=== PATIENT | female | born 1945 | race Caucasian/White ===

== ENCOUNTER → 2016-06-05 | Outpatient (CLI) | payer MEDICARE | END | disposition home or self-care (01) | LOC: BFHH 13:53 | PROVIDERS: ATTEND Internal Medicine Hematology & Oncology | DX: I48.91 Unspecified atrial fibrillation (principal); I10 Essential (primary) hypertension ==

== ENCOUNTER → 2016-06-13 | Outpatient (CLI) | payer MEDICARE | END | disposition home or self-care (01) | LOC: BFHH 09:45 | PROVIDERS: ATTEND Internal Medicine Hematology & Oncology | DX: I11.0 Hypertensive heart disease with heart failure (principal); I48.91 Unspecified atrial fibrillation ==

== ENCOUNTER → 2016-06-20 | Outpatient (CLI) | payer MEDICARE | END | disposition home or self-care (01) | LOC: BFHH 09:40 | PROVIDERS: ATTEND Internal Medicine Interventional Cardiology | DX: I48.91 Unspecified atrial fibrillation (principal); C50.912 Malignant neoplasm of unspecified site of left female breast; I10 Essential (primary) hypertension ==

== ENCOUNTER → 2016-07-11 | Outpatient (CLI) | payer MEDICARE | END | disposition home or self-care (01) | LOC: BFHH 10:41 | PROVIDERS: ATTEND Internal Medicine Interventional Cardiology | DX: C50.912 Malignant neoplasm of unspecified site of left female breast (principal); I48.91 Unspecified atrial fibrillation ==

== ENCOUNTER → 2016-08-29 | Outpatient (CLI) | payer MEDICARE | END | disposition home or self-care (01) | LOC: BFHH 10:16 | PROVIDERS: ATTEND Internal Medicine Interventional Cardiology | DX: I48.91 Unspecified atrial fibrillation (principal) ==

== ENCOUNTER → 2016-09-05 | Outpatient (CLI) | payer MEDICARE, OTHER | LOC: GMAM 15:07 | PROVIDERS: ATTEND Family Medicine | DX: E53.8 Deficiency of other specified B group vitamins (principal); M62.81 Muscle weakness (generalized); D64.9 Anemia, unspecified ==

== ENCOUNTER → 2016-10-17 | Outpatient (CLI) | payer MEDICARE, OTHER | END | disposition home or self-care (01) | LOC: BFHH 08:54 | PROVIDERS: ATTEND Family Medicine | DX: I48.91 Unspecified atrial fibrillation (principal) ==

== ENCOUNTER → 2016-12-21 | Outpatient (CLI) | payer MEDICARE, OTHER | END | disposition home or self-care (01) | LOC: BFHH 09:35 | PROVIDERS: ATTEND Family Medicine | DX: C50.912 Malignant neoplasm of unspecified site of left female breast (principal); D51.9 Vitamin B12 deficiency anemia, unspecified; I97.2 Postmastectomy lymphedema syndrome; D64.9 Anemia, unspecified; I11.0 Hypertensive heart disease with heart failure ==

== ENCOUNTER 2017-02-13 10:17 | Inpatient (IN) | payer MEDICARE, OTHER ==
--- NOTE | 2017-02-13 13:38 | HP ---
SUPERVISING PHYSICIAN: Zachary Perez MD CHIEF COMPLAINT: Hypokalemia and dehydration. HISTORY OF PRESENT ILLNESS: Ms. Conte is a 71-year-old, female patient with a malignant neoplasm in the left breast with metastatic disease process to the lungs, liver and bones. Her oncologist is Dr. Christopher. She has been having issues with hypokalemia. She has been having persistent low potassium levels and has been started on outpatient treatment plan with p.o. potassium multiple times, but continues to have persistent hypokalemia. Dr. Christopher requested that Dr. Perez manage her potassium levels in the outpatient setting. However, given that she is having persistent hypokalemia and is significantly weakened and feeling bad, she presented to the clinic today to recheck her level and her potassium again was low at 2.4 with magnesium 1.5. She also has elevated renal function with creatinine 2.65. The patient does have terminal illness and has hospice has been discussed multiple times, but she wishes to not do hospice at this time. Dr. Perez called me to have the patient admitted having failed outpatient treatment plan for persistent severe hypokalemia. The patient is now to be admitted to the hospital for initiation of IV potassium and further monitoring and treatment. PAST MEDICAL HISTORY: 1. Atrial fibrillation with controlled ventricular rate on Xarelto. 2. Malignant neoplasm of the left breast metastasized to lungs, liver and bones. 3. Post mastectomy lymphedema of the left arm, chronic. PAST SURGICAL HISTORY: 1. Left knee surgery. 2. Left mastectomy. 3. Thoracentesis. HOME MEDICATIONS: 1. Albuterol inhalers t.i.d. p.r.n. as needed. 2. Calcium 600 mg daily. 3. Ascorbic acid 1000 mg daily. 4. Vitamin B12 1000 mcg monthly. 5. Vitamin D3 2000 units daily. 6. Lasix 40 mg daily. 7. Feosol tablets 325 mg b.i.d. 8. Nexium 20 mg daily. 9. [place] 5/325 1 tablet q.6h. as needed for pain. 10. Mucinex 600 mg q.12h. as needed. 11. Atrovent 17 mcg t.i.d. as needed. 12. Ibuprofen 200 mg q.6h. as needed. 13. Imodium 2 mg daily. 14. Prilosec 20 mg daily. 15. Metoprolol tartrate 12.5 mg twice daily. 16. Xarelto 20 mg daily. 17. Potassium chloride 10 mEq daily. 18. Zofran 4 mg t.i.d. 19. Tramadol 50 mg q.4h. as needed. 20. Zantac 150 mg 3 times a day. 21. Lexapro 10 mg daily. ALLERGIES: NO KNOWN DRUG ALLERGIES. FAMILY HISTORY: Father of unknown reasons. Mother with breast cancer. She also has an aunt who has breast cancer. SOCIAL HISTORY: The patient lives in [place]. She is disabled. She is . She has five children. She is a nonsmoker. She does not drink alcohol or use illicit drugs. She lives along with no family assistance. REVIEW OF SYSTEMS: CONSTITUTIONAL: Denies any chills or changes in appetite. She does note she has generalized fatigue, but denies fever or headaches. HEENT: Denies blurred vision, decreased hearing, sore throat, swollen glands. RESPIRATORY: She does have some shortness of breath at rest as well as exertion. She denies any wheezing, cough. CARDIOVASCULAR: Denies chest pain. She does have a history of atrial fibrillation, but no syncopal episodes. GASTROINTESTINAL: Denies nausea or vomiting, abdominal pain, diarrhea, constipation or other bowel habit changes. GENITOURINARY: Denies dysuria, hematuria, or other urinary symptoms. INTEGUMENTARY: Denies rashes or lesions. NEUROLOGIC: Denies dizziness, syncopal episodes, vision changes. PHYSICAL EXAMINATION: VITAL SIGNS: Temperature 98.3. Pulse 104. Blood pressure 86/56. Respirations 20. Saturation 94% on room air. Heart rate was slightly irregular with controlled rate with monitor showing atrial fibrillation. Admission weight 42.5 kg. GENERAL: The patient appears to be in no acute distress. She is alert. HEENT: Tympanic membranes clear bilaterally. Oropharynx is pink. Mildly dry mucous membranes. No lesions. NECK: Supple with full range of motion. No jugular venous distention noted. No cervical lymphadenopathy noted. CHEST: Lungs clear to auscultation bilaterally without any rhonchi, wheezes, or rales. CARDIOVASCULAR: Slightly irregular rate and rhythm without any appreciable murmurs, gallops, or rubs. ABDOMEN: Soft, nontender. Positive bowel sounds. EXTREMITIES: There is no cyanosis, clubbing or edema except for chronic lymphedema noted to the left arm with pressure sleeve in place. NEUROLOGIC: The patient is alert and oriented times three with no focal neuromotor deficits. Cranial nerves II-XII are grossly intact. LABORATORY: CBC showed white count 10,200, hemoglobin 9, hematocrit 27.1. RBC indices showed microcytic/hypochromic presentation with platelet count 450,000. Differential showed just a slight left shift. Chemistries showed moderate hyponatremia with sodium 127, potassium 2.4, anion elevated at 18.4, BUN 21, creatinine 2.65, glucose 101, calcium 9.5, magnesium 1.5. Liver functions within normal limits. Urinalysis pending. RADIOLOGY: No studies were obtained. ASSESSMENT: 1. Metabolic acidosis noted with elevated anion gap, likely secondary to underlying dehydration and electrolyte imbalance with the patient being on Lasix. 2. Electrolyte imbalance with hypokalemia, hyponatremia and hypomagnesemia, likely secondary to ongoing Lasix therapy and some underlying dehydration, possibly secondary to some degree of syndrome of inappropriate antidiuretic hormone secretion (SIADH) with her showing a low osmolality of 258 along with sodium of 127. 3. Renal insufficiency likely due to prerenal azotemia with some underlying dehydration. 4. History of malignant neoplasm of the left breast with metastasis to the lungs, liver and bone. 5. Generalized weakness secondary to ongoing comorbidities, underlying malignancy, dehydration and electrolyte imbalance. 6. Anemia with microcytic/hypochromic presentation secondary to chronic illness with some iron deficiency anemia with the patient on iron therapy. 7. Chronic atrial fibrillation with controlled ventricular rate on a long-term anticoagulation therapy with Xarelto. PLAN: The patient will be admitted to the hospital for initiation of both oral and IV potassium. We will also provide some IV fluids to assist in rehydration and hopefully correction of the sodium with some normal saline with 40 of potassium that will run at 110 an hour. We will reassess in the morning with BMP. She will also get potassium 40 mEq p.o. once and again as needed once able to recheck electrolytes. We will resume home medications once they have been updated and verified. We will plan to continue DVT prophylaxis with Xarelto. We will anticipate length of stay to be last two to three days with close monitoring of her magnesium and potassium for correction. Until then, we will continue to monitor the patient closely and treat appropriately. Once clinically improved, she certainly will be discharged to have close clinical followup with Dr. Perez, her primary care provider. I did discuss initially when she came in possibility of hospice. The patient is adamantly against hospice at this point. She does live alone, but feels like she is not in need of hospice care. #[id number] [facility]
[2017-02-13] MEDS ORDERED: ACETAMINOPHEN 325 MG TAB PO PRN (14:28)
[2017-02-13] MEDS ORDERED: SODIUM CHLORIDE 0.9% (FLUSH) 10 ML SYG IV PRN (14:28)
[2017-02-13] MEDS ORDERED: IV SET AND CAP CHANGE INJ INJ SCH (14:30)
[2017-02-13] MEDS ORDERED: MAGNESIUM SULFATE PREMIX 2GM 2 GM in PREMIX BAG 1 BAG IVPB ONE (14:32)
[2017-02-13] MEDS ORDERED: MAGNESIUM SULFATE PREMIX 2GM 50 ML IVPB ONE (15:06)
[2017-02-13] MEDS: KCL 40MEQ/NS 1,000 ML IVS PRN (15:08)
[2017-02-13] MEDS ORDERED: IBUPROFEN 200 MG TAB PO PRN (17:14)
[2017-02-13] MEDS ORDERED: HYDROcodone 5MG/APAP 325MG 1 EA TAB PO PRN (17:14)
[2017-02-13] MEDS ORDERED: traMADol HCL 50 MG TAB PO PRN (17:14)
[2017-02-13] MEDS ORDERED: POTASSIUM CHLORIDE 20 MEQ TAB PO ONE (17:18)
[2017-02-13] MEDS ORDERED: CYANOCOBALAMIN INJ 1,000 MCG/ML INJ IM SCH (17:30)
[2017-02-13] MEDS: ONDANSETRON 4 MG TAB PO SCH (20:54)
[2017-02-13] MEDS: FERROUS SULFATE 325 MG TAB PO SCH (20:57)
[2017-02-13] MEDS ORDERED: SODIUM CHLORIDE 0.9% (FLUSH) 10 ML SYG IV SCH (21:00)
--- NOTE | 2017-02-13 21:03 | PCM.CORE ---
Physician DVT/VTE - Prophylaxis Currently: Patient already on anticoagulation therapy - xarelto - Nurse DVT Assessment & Total Each Risk Factor Represents 3 Points: Age over 75 years, Medical PT with Hx of VA, CHF, Severe infection/sepsis Each Risk Factor Represents 1 Point: Medical PT at Bed Rest DVT Assessment Score: 7 - 5 or more Very High Risk Treatments: Early Ambulation *, Sequential Compression Device
[2017-02-13] MEDS ORDERED: SODIUM CHLORIDE 0.9% 500ML 500 ML IVS ONE (21:21)
[2017-02-13] MEDS: METOPROLOL TARTRATE 25 MG TAB PO SCH (21:36)
[2017-02-14] MEDS: KCL 40MEQ/NS 1,000 ML IVS PRN (02:25)
[2017-02-14] MEDS ORDERED: METOPROLOL TARTRATE 25 MG TAB ONE (09:37)
[2017-02-14] MEDS ORDERED: LOPERAMIDE CAP 2 MG CAP ONE (09:38)
[2017-02-14] MEDS: LOPERAMIDE CAP 2 MG CAP PO SCH (09:50)
[2017-02-14] MEDS: FERROUS SULFATE 325 MG TAB PO SCH ×2 (09:50→21:15)
[2017-02-14] MEDS: CHOLECALCIFEROL 2,000 IU TAB PO SCH (09:50)
[2017-02-14] MEDS: CALCIUM CARBONATE-VITAMIN D 500 MG TAB PO SCH (09:50)
[2017-02-14] MEDS: ESCITALOPRAM 10 MG TAB PO SCH (09:50)
[2017-02-14] MEDS: POTASSIUM CHLORIDE 10 MEQ TAB PO SCH (09:51)
[2017-02-14] MEDS: ASCORBIC ACID 500 MG TAB PO SCH (09:52)
[2017-02-14] MEDS: OMEPRAZOLE CAP 20 MG CAP PO SCH (09:52)
[2017-02-14] MEDS: RIVAROXABAN 10 MG TAB PO SCH (09:58)
[2017-02-14] MEDS: ONDANSETRON 4 MG TAB PO SCH ×3 (09:58→21:15)
[2017-02-14] MEDS ORDERED: CYANOCOBALAMIN INJ 1,000 MCG/ML INJ IM ONE (10:16)
[2017-02-14] MEDS ORDERED: CYANOCOBALAMIN INJ 1,000 MCG/ML INJ ONE (15:57)
[2017-02-14] MEDS: METOPROLOL TARTRATE 25 MG TAB PO SCH (17:13)
--- NOTE | 2017-02-14 18:39 | PN ---
DATE: 02/14/17 SUPERVISING PHYSICIAN: Zachary Perez M.D. SUBJECTIVE: The patient is lying in her hospital bed. She is sleeping but she awakens easily. She has no complaints of shortness of breath, nausea, vomiting , diarrhea or chest pain. She does admit that she is very weak and just does not feel up to par yet. OBJECTIVE: VITAL SIGNS: She is afebrile, heart rate 93, blood pressure 97/62, respiratory rate 20, O2 sat is 96% on room air. RESPIRATORY: Essentially clear to auscultation bilaterally. CARDIAC: Slightly irregular rhythm, regular rate. ABDOMEN: Soft, nondistended, non-tender. Bowel sounds are positive. EXTREMITIES: No cyanosis, clubbing or edema. She does have chronic lymphedema to the left arm and she has a pressure sleeve in place. NEUROLOGIC: She is awake, alert and oriented times three. LABORATORY: Sodium 132, potassium 3.8 with chloride 95, carbon dioxide 28, BUN 21, creatinine 2.42, glucose 125. Serum osmolality 269.0. Magnesium 2.3. All other labs and films have been reviewed via the EMR. ASSESSMENT: 1. Metabolic acidosis noted with elevated anion gap, likely secondary to underlying dehydration and electrolyte imbalance with the patient being on Lasix. 2. Electrolyte imbalance with hypokalemia, hyponatremia and hypomagnesemia, likely secondary to ongoing Lasix therapy and some underlying dehydration, possibly secondary to some degree of syndrome of inappropriate antidiuretic hormone secretion (SIADH) with her showing a low osmolality of 269 that is improved from 258. 3. Renal insufficiency likely due to prerenal azotemia with some underlying dehydration. 4. History of malignant neoplasm of the left breast with metastasis to the lungs, liver and bone. 5. Generalized weakness secondary to ongoing comorbidities, underlying malignancy, dehydration and electrolyte imbalance. 6. Anemia with microcytic/hypochromic presentation secondary to chronic illness with some iron deficiency anemia with the patient on iron therapy. 7. Chronic atrial fibrillation with controlled ventricular rate on a long-term anticoagulation therapy with Xarelto. PLAN: We will continue present supportive care. I have discontinued her IV fluids for now. Will recheck her lab in the morning. I will also order physical therapy so they can evaluate if she is safe to go home. Otherwise I have encouraged good pulmonary hygiene. We will continue to monitor the patient closely and follow as needed. Dr. Perez is the collaborating physician available for consultation. #[id number] [facility]
[2017-02-15] MEDS: OMEPRAZOLE CAP 20 MG CAP PO SCH (06:04)
[2017-02-15] MEDS: POTASSIUM CHLORIDE 10 MEQ TAB PO SCH (08:46)
[2017-02-15] MEDS: METOPROLOL TARTRATE 25 MG TAB PO SCH ×2 (08:46→09:26)
[2017-02-15] MEDS: ESCITALOPRAM 10 MG TAB PO SCH (09:28)
[2017-02-15] MEDS: CALCIUM CARBONATE-VITAMIN D 500 MG TAB PO SCH (09:28)
[2017-02-15] MEDS: ASCORBIC ACID 500 MG TAB PO SCH (09:28)
[2017-02-15] MEDS: CHOLECALCIFEROL 2,000 IU TAB PO SCH (09:28)
[2017-02-15] MEDS: ONDANSETRON 4 MG TAB PO SCH (09:28)
[2017-02-15] MEDS: RIVAROXABAN 10 MG TAB PO SCH (09:29)
[2017-02-15] MEDS: LOPERAMIDE CAP 2 MG CAP PO SCH (09:29)
[2017-02-15] MEDS: FERROUS SULFATE 325 MG TAB PO SCH (09:29)
[2017-02-15 10:07] VITALS: BP 89/57; TEMP 98; O2SAT 96
[2017-02-15] MEDS ORDERED: PNEUMOCOCCAL VACCINE 0.5 ML INJ IM ONE (10:30)
[2017-02-15] MEDS ORDERED: INFLUENZA VIRUS VACC (ADULT) 0.5 ML SYG IM ONE (10:30)
--- NOTE | 2017-02-15 13:34 | DS ---
SUPERVISING PHYSICIAN: Zachary Perez MD DISCHARGE DIAGNOSIS: 1. Metabolic acidosis noted with elevated anion gap, likely secondary to underlying dehydration and electrolyte imbalance with the patient being on Lasix. 2. Electrolyte imbalance with hypokalemia, hyponatremia and hypomagnesemia, likely secondary to ongoing Lasix therapy and some underlying dehydration, possibly secondary to some degree of syndrome of inappropriate antidiuretic hormone secretion (SIADH). Her osmolality on admission was 258.3. Today, it is 265.7. 3. Renal insufficiency likely due to prerenal azotemia with some underlying dehydration. 4. History of malignant neoplasm of the left breast with metastasis to the lungs, liver and bone. 5. Generalized weakness secondary to ongoing comorbidities, underlying malignancy, dehydration and electrolyte imbalance. 6. Anemia with microcytic/hypochromic presentation secondary to chronic illness with some iron deficiency anemia with the patient on iron therapy. 7. Chronic atrial fibrillation with controlled ventricular rate on a long-term anticoagulation therapy with Xarelto. HISTORY OF PRESENT ILLNESS: This is a 71-year-old female patient who has a malignant neoplasm in the left breast with metastatic disease process to the lungs, liver and bones. Her oncologist is Dr. Christopher. She has been having issues with hypokalemia. She has been having persistent low potassium levels. Dr. Christopher requested that Dr. Perez manage her potassium levels in the outpatient setting. However, given that she is having persistent hypokalemia, she was admitted to the hospital after she presented to the clinic with potassium of 2.4 with magnesium 1.5. She also had elevated creatinine of 2.65. The patient does have terminal illness and has declined hospice. She was admitted to the hospital to balance her electrolytes. HOSPITAL COURSE: She has received magnesium as well as potassium supplementation. Today, her magnesium is 2.1 and her potassium is 4.4. Her creatinine is also improved to 1.92. Physical therapy has evaluated her and deemed her safe to go home. She does not walk around at home. She uses her wheelchair to get around and she was safe for transfers. She has [facility] and we will have them start her care up again. DISCHARGE PLAN: The patient will be discharged home in stable condition. We will restart her [facility] as well as have them evaluate her for physical therapy for strengthening. I also will resume her prior medications, but we will have close followup with Dr. Perez. He will need to do a magnesium and metabolic panel at next visit to evaluate her electrolytes. I have made no changes on her medications because I believe most of her hypokalemia was due to her hypomagnesemia and once we corrected that, her potassium has maintained. Otherwise, she is to return to the hospital or call Dr. Perez's office for any further complications or problems. She is to resume her previous activity as well as her previous diet. Her followup appointment is within the next week at Dr. Perez's office. DISCHARGE MEDICATIONS: 1. Ranitidine. 2. Tramadol. 3. Xarelto. 4. Potassium chloride. 5. Zofran. 6. Omeprazole. 7. Metoprolol. 8. Loperamide. 9. Atrovent. 10. Ibuprofen. 11. Hydrocodone. 12. Guaifenesin. 13. Furosemide. 14. Ferrous sulfate. 15. Nexium. 16. Lexapro. 17. Cyanocobalamin. 18. Vitamin D3. 19. Calcium. 20. Vitamin C. Dr. Perez is the collaborating physician and available for consultation. #[id number] [facility]
== END 2017-02-15 11:45 | disposition home health service (06) | DRG 644 ==
LOC: BFHH 10:17 → MS 13:25
PROVIDERS: ADMIT Nurse Practitioner Family; ATTEND Nurse Practitioner Family
DX: E22.2 Syndrome of inappropriate secretion of antidiuretic hormone (principal); C78.02 Secondary malignant neoplasm of left lung; C78.01 Secondary malignant neoplasm of right lung; C78.7 Secondary malignant neoplasm of liver and intrahepatic bile duct; C79.51 Secondary malignant neoplasm of bone; E87.2 Acidosis; E86.0 Dehydration; I97.2 Postmastectomy lymphedema syndrome; E87.6 Hypokalemia; E83.42 Hypomagnesemia; N28.9 Disorder of kidney and ureter, unspecified; D50.9 Iron deficiency anemia, unspecified; I48.2 Chronic atrial fibrillation; Z85.3 Personal history of malignant neoplasm of breast; Z79.01 Long term (current) use of anticoagulants; Z79.1 Long term (current) use of non-steroidal anti-inflammatories (NSAID); Y83.8 Other surgical procedures as the cause of abnormal reaction of the patient, or of later complication, without mention of misadventure at the time of the procedure; Y92.9 Unspecified place or not applicable

== ENCOUNTER → 2017-02-20 | Outpatient (CLI) | payer MEDICARE, OTHER | END | disposition home or self-care (01) | LOC: BFHH 10:14 | PROVIDERS: ATTEND Family Medicine | DX: E87.6 Hypokalemia (principal); E83.42 Hypomagnesemia ==

== ENCOUNTER 2017-02-26 15:25 | Inpatient (IN) | payer MEDICARE, OTHER ==
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
[2017-02-26] MEDS ORDERED: SODIUM CHLORIDE 0.9% (FLUSH) 10 ML SYG IV PRN (19:37)
[2017-02-26] MEDS ORDERED: MAGNESIUM HYDROXIDE 30 ML UD PO PRN (19:57)
[2017-02-26] MEDS ORDERED: ACETAMINOPHEN 325 MG TAB PO PRN (19:57)
[2017-02-26] MEDS ORDERED: IV SET AND CAP CHANGE INJ INJ SCH (20:00)
[2017-02-26] MEDS ORDERED: traMADol HCL 50 MG TAB PO PRN (20:11)
[2017-02-26] MEDS ORDERED: POTASSIUM CHLORIDE 20 MEQ TAB PO ONE (20:12)
[2017-02-26] MEDS ORDERED: POTASSIUM CHLORIDE INJ 40 MEQ 40 MEQ in SODIUM CHLORIDE 0.9% 250ML 250 ML IVPB ONE (20:30)
[2017-02-26] MEDS: SPIRONOLACTONE 25 MG TAB PO SCH (20:55)
[2017-02-26] MEDS ORDERED: POTASSIUM CHLORIDE 10 MEQ TAB PO SCH (21:00)
[2017-02-26] MEDS ORDERED: KCL 20 MEQ/NS 1,000 ML IVS ONE (21:47)
[2017-02-26] MEDS: KCL 40MEQ/NS 1,000 ML IVS PRN (21:58)
[2017-02-27] MEDS: OMEPRAZOLE CAP 20 MG CAP PO SCH (06:27)
--- NOTE | 2017-02-27 07:12 | RAD ---
EXAM: Two view chest. INDICATION: Hypokalemia. COMPARISON: Chest x-ray: None. FINDINGS: There are bibasilar airspace opacities with bilateral pleural effusions. There is a right perihilar airspace opacity. Heart is normal in size. There is no pneumothorax. The right chest wall port terminates within the SVC. Left axillary clips are noted. IMPRESSION: Bibasilar airspace opacities with bilateral pleural effusions. Right perihilar airspace opacity, which may represent pneumonia or a mass. Electronically signed by: Misha Silva MD 02/27/2017 7:11 AM [facility] Workstation: [id number]
[2017-02-27] MEDS: METOPROLOL TARTRATE 25 MG TAB PO SCH ×2 (07:51→17:35)
[2017-02-27] MEDS: POTASSIUM CHLORIDE 10 MEQ TAB PO SCH ×3 (08:56→17:35)
[2017-02-27] MEDS: FUROSEMIDE INJ 20 MG/2 ML VIAL IV SCH ×2 (08:57→17:35)
[2017-02-27] MEDS: RIVAROXABAN 10 MG TAB PO SCH (08:57)
[2017-02-27] MEDS: SPIRONOLACTONE 25 MG TAB PO SCH (09:01)
[2017-02-27] MEDS: KCL 40MEQ/NS 1,000 ML IVS PRN (16:06)
[2017-02-27] MEDS ORDERED: POTASSIUM CHLORIDE 20 MEQ TAB PO ONE (17:40)
[2017-02-27] MEDS ORDERED: HYDROcodone 5MG/APAP 325MG 1 EA TAB PO PRN (17:41)
[2017-02-27] MEDS ORDERED: traMADol HCL 50 MG TAB PO PRN (17:41)
[2017-02-27] MEDS: ESCITALOPRAM 10 MG TAB PO SCH (18:01)
--- NOTE | 2017-02-27 18:58 | PN ---
DATE: 02/27/17 SUBJECTIVE: The patient is sitting up in her hospital bed. She is eating her meal. Has no complaints of shortness of breath, nausea, vomiting, diarrhea or chest pain. She continues to be very weak but feels better than she did yesterday. OBJECTIVE: VITAL SIGNS: She is afebrile, heart rate 116, blood pressure 112/72 , respiratory rate 24, O2 sats are 94% on room air. RESPIRATORY: Essentially clear to auscultation bilaterally. CARDIAC: Regular rate and rhythm. ABDOMEN: Soft, nondistended, non-tender. Bowel sounds are positive. EXTREMITIES: No cyanosis, clubbing or edema. NEUROLOGIC: She is awake, alert and oriented times three. LABORATORY: WBCs are 9.6, hemoglobin 8.9 with hematocrit 27.0. Sodium 136, potassium 3.1 up from 2.2 yesterday. Chloride 95, carbon dioxide 34, calcium 8.3. BNP is slightly elevated at 266 with serum total protein of 5.6 and albumin of 2.8. TSH is 2.12. RADIOLOGY: Chest x-ray shows bibasilar airspace opacities with bilateral pleural effusions and a right perihilar airspace opacity which may represent pneumonia or a mass. All other labs and films have been reviewed via the EMR. ASSESSMENT: 1. Severe hypokalemia with potassium of 2.2 on admission, has now improved to 3.1 today. 2. History of left breast cancer with metastatic processes to the liver, lung and bone. 3. History of anemia with a microcytic hypochromic presentation. 4. History of hyponatremia. 5. Chronic atrial fibrillation on beta blockers for rate control and on Xarelto for anticoagulation. 6. History of recent weight loss. PLAN: We will continue present supportive care. I have discontinued her IV Lasix and changed her back to her oral medications. She will need to go home on a higher dose of potassium as she was sent home on 10 mEq several weeks ago and will need to be on a higher dose with a very close followup with her primary care physician, Dr. Perez. Her home medications have been restarted. I have encouraged good pulmonary hygiene and I have ordered routine labs for in the morning. We will continue to monitor the patient closely and follow as needed. Dr. Perez is the collaborating physician available for consultation. #[id number] [facility]
[2017-02-27] MEDS: SODIUM CHLORIDE 0.9% (FLUSH) 10 ML SYG IV SCH (20:55)
[2017-02-27] MEDS: guaiFENesin ER TAB 600 MG TAB PO SCH (20:55)
[2017-02-27] MEDS: DRONABINOL 2.5 MG PO SCH (20:55)
[2017-02-27] MEDS ORDERED: METOPROLOL TARTRATE 25 MG TAB PO SCH (21:00)
[2017-02-28] MEDS: guaiFENesin ER TAB 600 MG TAB PO SCH (02:41)
[2017-02-28] MEDS: OMEPRAZOLE CAP 20 MG CAP PO SCH (06:23)
[2017-02-28] MEDS: POTASSIUM CHLORIDE 10 MEQ TAB PO SCH ×2 (07:29→12:24)
[2017-02-28] MEDS: DRONABINOL 2.5 MG PO SCH (08:37)
[2017-02-28] MEDS: ESCITALOPRAM 10 MG TAB PO SCH (08:38)
[2017-02-28] MEDS: SPIRONOLACTONE 25 MG TAB PO SCH (08:39)
[2017-02-28] MEDS: RIVAROXABAN 10 MG TAB PO SCH (08:39)
[2017-02-28] MEDS: SODIUM CHLORIDE 0.9% (FLUSH) 10 ML SYG IV SCH (08:45)
[2017-02-28] MEDS ORDERED: EXEMESTANE 25 MG PO SCH (09:00)
[2017-02-28] MEDS ORDERED: RIVAROXABAN 10 MG TAB PO SCH (09:00)
[2017-02-28] MEDS ORDERED: METOPROLOL TARTRATE 25 MG TAB PO SCH (09:00)
[2017-02-28] MEDS ORDERED: FUROSEMIDE 40 MG TAB PO SCH (09:00)
[2017-02-28] MEDS ORDERED: EVEROLIMUS 10 MG PO SCH (09:00)
[2017-02-28 10:45] VITALS: BP 98/66; TEMP 98.5; O2SAT 95
[2017-02-28] MEDS ORDERED: HEPARIN SODIUM 100 U/ML 5 ML SYG IV ONE (11:35)
[2017-02-28] MEDS ORDERED: guaiFENesin ER TAB 600 MG TAB PO SCH (21:00)
--- NOTE | 2017-03-15 11:24 | DS ---
SUPERVISING PHYSICIAN: Zachary Perez MD DISCHARGE DIAGNOSIS: 1. Severe hypokalemia, improved after IV replacement and increasing scheduled potassium. 2. History of breast cancer with metastasis to the liver, lungs and bone. 3. History of microcytic/hypochromic anemia. 4. Chronic hyponatremia secondary to diuretics. 5. Chronic atrial fibrillation on beta aurora and Xarelto with a ventricular rate control. 6. History of recent weight loss, likely secondary to metastatic process. REASON FOR HOSPITALIZATION: Ms. Conte is a 71-year-old female who was admitted to the hospital on 02/27/[address] Perez's office. She lives at home alone. She has been getting significantly weaker and recently had been followed in the clinic since her last hospitalization approximately 5 weeks previously due to a low potassium. She admits to drinking no more than 2 quarts of water and fluid per day, so she admits to not drinking excessively. Recently, her potassium was down to 2.4 and when rechecked after supplementation , it was down to 2.2. She had been on some Lasix. She was very weak and having difficulty getting around. She lives at home alone and has a fear of falling at home. She was admitted to the hospital because of the severity of the condition and because of her multiple other health problems, including breast cancer with multiple metastasis, anemia, low sodium, chronic atrial fibrillation and weight loss. LABORATORY: White count on admission was 9,600, at discharge was 10,600. Hemoglobin and hematocrit were stable and and therefore discharge were 9.3 and 28.1. Platelet count was 337,000. Differential was within normal limits. Chemistries showed potassium on admission 3.1. After supplementation and increasing potassium, discharge was at 4.7. Sodium 136, BUN 16, creatinine 1.07. Liver functions all within normal limits. BNP slightly elevated at 266. Urinalysis was within normal limits. MICROBIOLOGY: There were no specimens submitted. RADIOLOGY: One chest x-ray was completed on admission and per radiologic interpretation showed basilar airspace opacities with bilateral pleural effusions. There is a right perihilar airspace opacity which may represent pneumonia or mass. EKG showed atrial fibrillation with a ventricular rate of 98. HOSPITAL COURSE: Ms. Conte was admitted in stable condition as noted in history of present illness and started on supplementation for potassium with IV fluids as well as oral potassium as well as given a dose of Aldactone. On the morning of discharge, her potassium had improved and it was felt she was clinically stable enough to be discharged home. PLAN: Ms. Conte was discharged on 02/28/17 with instructions to followup with Dr. Perez in the clinic as scheduled as well as have home health with [facility]. She was told to return to the hospital should she have any concerning symptoms. On discharge, her potassium chloride extended release was increased to 20 mEq daily, #30. She was to take 2 tablets daily as directed. All other medications were resumed as prior to hospitalization. DIET: Regular diet as tolerated. ACTIVITY: Increase as tolerated. CONDITION AT DISCHARGE: Stable and improved. #[id number] [facility]
== END 2017-02-28 14:00 | disposition home health service (06) | DRG 641 ==
LOC: GMAM 15:25 → MS 17:41
PROVIDERS: ADMIT Emergency Medicine; ATTEND Nurse Practitioner Family
DX: E87.6 Hypokalemia (principal); C78.7 Secondary malignant neoplasm of liver and intrahepatic bile duct; C78.00 Secondary malignant neoplasm of unspecified lung; C79.51 Secondary malignant neoplasm of bone; D50.9 Iron deficiency anemia, unspecified; I97.2 Postmastectomy lymphedema syndrome; I48.2 Chronic atrial fibrillation; R63.4 Abnormal weight loss; Z79.01 Long term (current) use of anticoagulants; Z85.3 Personal history of malignant neoplasm of breast; Z90.12 Acquired absence of left breast and nipple; E87.1 Hypo-osmolality and hyponatremia

== ENCOUNTER 2017-03-01 16:00 | Inpatient (IN) | payer MEDICARE, OTHER ==
[2017-03-01] MEDS ORDERED: HYDROcodone 5MG/APAP 325MG 1 EA TAB PO ONE (16:26)
[2017-03-01] MEDS ORDERED: METOPROLOL TARTRATE 25 MG TAB PO ONE (16:26)
[2017-03-01] MEDS ORDERED: DIGOXIN 0.25 MG TAB PO ONE (18:12)
--- NOTE | 2017-03-01 18:24 | ED.PDOC ---
History of Present Illness - General Chief Complaint: Cardiovascular Problem Stated Complaint: Elevated HR Time Seen by Provider: 03/01/17 16:25 Source: patient Exam Limitations: no limitations - History of Present Illness Initial Comments: the patient is a 71-year-old female presenting to the emergency room secondary to feeling of palpitations. Her home health nurse had noted a heart rate in the 140s to 150s. Indeed she does have a long-standing history of atrial fibrillation but has been better rate controlled in the past. She was apparently here in the hospital just yesterday for electrolyte imbalances. She was released. She went home and her heart rates seem to have increased overnight significantly. She is not feeling short of breath at rest. She does feel the palpitations when she gets up and starts to move around. She does have known metastatic cancer. She is not on hospice. She does have some known pleural effusions. She is not having fevers. She is not coughing up anything. She is not really having chest pain or feeling any shortness of breath at rest. Timing/Duration: unsure Severity: moderate Improving Factors: nothing Worsening Factors: nothing Associated Symptoms: denies symptoms Allergies/Adverse Reactions: Allergies NO KNOWN ALLERGY Allergy (Verified 03/01/17 16:20) Home Medications: Ambulatory Orders Albuterol Sulfate 0.083 % INH TID PRN 02/13/17 Ascorbic Acid [Vitamin C] 1,000 mg PO DAILY 02/13/17 Cyanocobalamin Inj [Vitamin B-12 Inj] 1,000 mcg IM MONTHLY 02/13/17 Escitalopram [Lexapro] 10 mg PO DAILY 02/13/17 Esomeprazole Magnesium [Nexium 24Hr] 20 mg PO BEDTIME 02/13/17 Furosemide [Lasix] 40 mg PO DAILY 02/13/17 Guaifenesin [Mucinex] 600 mg PO Q12HRS PRN 02/13/17 HYDROcodone 5MG/APAP 325MG [[place] 5/325] 1 tab PO Q6HR PRN 02/13/17 Ibuprofen 400 mg PO Q8HR PRN 02/13/17 Ipratropium [place] Hfa [Atrovent Hfa] 17 mcg IN TID PRN 02/13/17 Loperamide Cap [Imodium Cap] 2 mg PO PRN PRN 02/13/17 Metoprolol Tartrate 12.5 mg PO BID 02/13/17 Rivaroxaban [Xarelto] 20 mg PO DAILY 02/13/17 Tramadol HCl 50 mg PO Q6HR PRN 02/13/17 Calcium Carbonate-Cholecalcife [Calcium 600+D 600-400 mg-Unit] 1 tab PO QAM Dronabinol [Marinol] 2.5 mg PO BID 02/26/17 Everolimus [Afinitor] 10 mg PO DAILY 02/26/17 Exemestane 25 mg PO DAILY 02/26/17 Ferrous Gluconate [Iron 27] 1 tablet PO QAM 02/26/17 Ibuprofen [Advil] 200 mg PO Q4H PRN 02/26/17 [place]-3 Fatty Acids [Fish Oil] 1,000 mg PO BEDTIME 02/26/17 Potassium Chloride [Potassium Chloride ER] 20 meq PO DAILY #30 cap 02/28/17 Review of Systems - Review of Systems Constitutional: States: malaise EENTM: States: no symptoms reported Respiratory: States: no symptoms reported Cardiology: States: palpitations Gastrointestinal/Abdominal: States: no symptoms reported Genitourinary: States: no symptoms reported Musculoskeletal: States: no symptoms reported Skin: States: no symptoms reported Neurological: States: no symptoms reported Endocrine: States: no symptoms reported Hematologic/Lymphatic: States: no symptoms reported All other Systems: No Change from Baseline Past Medical History (General) - Patient Medical History Hx Seizures: No Hx Stroke: No Hx Asthma: No Hx of COPD: No Hx Cardiac Disorders: Yes - Atrial fib Hx Congestive Heart Failure: Yes Hx Pacemaker: No Hx Hypertension: Yes Hx Diabetes: No Hx Cancer: Yes - L breast CA Hx MRSA: No Surgical History: other - Vaccination History Hx Influenza Vaccination: Yes - 2016 Hx Pneumococcal Vaccination: Yes - Social History Hx Tobacco Use: No Hx Alcohol Use: No Hx Substance Use: No Hx Physical Abuse: No Hx Emotional Abuse: No Family Medical History - Family History Mother Living Status: Hx Family Cancer: Yes Father Living Status: Hx Family Cancer: Yes Physical Exam - Physical Exam General Appearance: Alert, Comfortable, No apparent distress Eye Exam: bilateral normal Ears, Nose, Throat: hearing grossly normal, other - poor dentition Neck: full range of motion, supple Respiratory: no respiratory distress, no accessory muscle use, other - he does have bilateral lower lobe crackles. This is consistent with her previous noted pleural effusions Cardiovascular/Chest: normal peripheral pulses, no edema, tachycardia - atrial fibrillation with RVR as noted on telemetry Peripheral Pulses: radial,right: 2+, radial,left: 2+, dorsalis pedis,right: 2+, dorsalis pedis,left: 2+ Gastrointestinal/Abdominal: non tender, soft Rectal Exam: deferred Back Exam: no CVA tenderness, no vertebral tenderness Extremity: non-tender, no pedal edema, no calf tenderness, normal capillary refill, other - edema stocking to the left upper extremity from her previous surgery Neurologic: route service representative II-XII nml as tested, alert, normal mood/affect, oriented x 3 - the patient may however have some background dementia Skin Exam: pallor Comments: Vital Signs - 24 hr 03/01/17 16:08 Temperature 99.6 F Pulse Rate [ 140 H Apical] Respiratory 20 Rate Blood Pressure 101/69 [Right Arm] O2 Sat by Pulse 96 Oximetry Progress - Progress Progress: 03/01/17 18:26 the patient is a 71-year-old female presents to emergency room secondary to palpitations. She does have atrial fibrillation which is long- standing however the rapid ventricular rate is apparently fairly new. Aside from feeling the palpitations she seems to be largely asymptomatic from it at this time. Lab work does appear reassuring for now. She does have of course metastatic cancer. No obvious evidence of infection at this time. Her hemoglobin and hematocrit appear stable. She appears to be oxygenating as well as she normally does. The patient was given a small extra dose of metoprolol and we were able to bring her heart rate down to the 120s. We are giving her an oral dose of digoxin and we'll see how that does overnight. Admit for monitoring overnight and further medication management for heart rate control. IV medications do not appear to be warranted at this time with this patient. Close monitoring however does. - Results/Orders Results/Orders: 03/01/17 16:45 EKG STAT atrial fibrillation with RVR at a rate of 126 bpm. Normal axis. Slow R-wave progression in anterior leads. No definitive ST segment changes concerning for ischemia. Laboratory Results - last 24 hr 03/01/17 03/01/17 03/01/17 16:41 16:41 16:41 WBC 9.4 RBC 3.69 L Hgb 9.5 L Hct 28.9 L MCV 78.3 L MCH 25.7 L MCHC 32.9 L RDW 22.3 H Plt Count 373 MPV 7.4 Absolute Neuts (auto) 6.80 Absolute Lymphs (auto) 1.40 Absolute Monos (auto) 0.80 Absolute Eos (auto) 0.20 Absolute Basos (auto) 0.10 Neutrophils % 73.0 Lymphocytes % 15.3 L Monocytes % 8.1 Eosinophils % 2.5 Basophils % 1.1 Sodium 134 L Potassium 4.5 Chloride 95 L Carbon Dioxide 30 Anion Gap 13.5 BUN 16 Creatinine 1.10 BUN/Creatinine Ratio 14.5 Random Glucose 83 Serum Osmolality 268.6 L Calcium 9.7 Magnesium 1.8 Total Bilirubin 0.8 AST 29 ALT < 8 L Alkaline Phosphatase 109 D Creatine Kinase 22 L CK-MB (CK-2) 0.4 CK-MB (CK-2) % Not Reportable Troponin I < 0.02 B-Natriuretic Peptide Serum Total Protein 6.1 L Albumin 3.0 L Globulin 3.1 Albumin/Globulin Ratio 1.0 L Urine Color Urine Appearance Urine pH Ur Specific [place] Urine Protein Urine Glucose (UA) Urine Ketones Urine Blood Urine Nitrite Urine Bilirubin Urine Urobilinogen Ur Leukocyte Esterase Urine RBC Urine WBC Ur Epithelial Cells Urine Bacteria 03/01/17 03/01/17 16:41 17:56 WBC RBC Hgb Hct MCV MCH MCHC RDW Plt Count MPV Absolute Neuts (auto) Absolute Lymphs (auto) Absolute Monos (auto) Absolute Eos (auto) Absolute Basos (auto) Neutrophils % Lymphocytes % Monocytes % Eosinophils % Basophils % Sodium Potassium Chloride Carbon Dioxide Anion Gap BUN Creatinine BUN/Creatinine Ratio Random Glucose Serum Osmolality Calcium Magnesium Total Bilirubin AST ALT Alkaline Phosphatase Creatine Kinase CK-MB (CK-2) CK-MB (CK-2) % Troponin I B-Natriuretic Peptide 212.0 H* Serum Total Protein Albumin Globulin Albumin/Globulin Ratio Urine Color Yellow Urine Appearance Clear Urine pH 8.5 H Ur Specific [place] 1.020 Urine Protein 30 Urine Glucose (UA) Negative Urine Ketones Negative Urine Blood Negative Urine Nitrite Negative Urine Bilirubin Negative Urine Urobilinogen 0.2 Ur Leukocyte Esterase Negative Urine RBC 0 Urine WBC 0 Ur Epithelial Cells 0 Urine Bacteria 0 Departure - Departure Clinical Impression: Atrial fibrillation with rapid ventricular response Disposition: Admit Patient Referrals: Zachary Perez MD [Primary Care Provider] - 1-2 Weeks Home Medications: Ambulatory Orders Albuterol Sulfate 0.083 % INH TID PRN 02/13/17 Ascorbic Acid [Vitamin C] 1,000 mg PO DAILY 02/13/17 Cyanocobalamin Inj [Vitamin B-12 Inj] 1,000 mcg IM MONTHLY 02/13/17 Escitalopram [Lexapro] 10 mg PO DAILY 02/13/17 Esomeprazole Magnesium [Nexium 24Hr] 20 mg PO BEDTIME 02/13/17 Furosemide [Lasix] 40 mg PO DAILY 02/13/17 Guaifenesin [Mucinex] 600 mg PO Q12HRS PRN 02/13/17 HYDROcodone 5MG/APAP 325MG [[place] 5/325] 1 tab PO Q6HR PRN 02/13/17 Ibuprofen 400 mg PO Q8HR PRN 02/13/17 Ipratropium [place] Hfa [Atrovent Hfa] 17 mcg IN TID PRN 02/13/17 Loperamide Cap [Imodium Cap] 2 mg PO PRN PRN 02/13/17 Metoprolol Tartrate 12.5 mg PO BID 02/13/17 Rivaroxaban [Xarelto] 20 mg PO DAILY 02/13/17 Tramadol HCl 50 mg PO Q6HR PRN 02/13/17 Calcium Carbonate-Cholecalcife [Calcium 600+D 600-400 mg-Unit] 1 tab PO QAM Dronabinol [Marinol] 2.5 mg PO BID 02/26/17 Everolimus [Afinitor] 10 mg PO DAILY 02/26/17 Exemestane 25 mg PO DAILY 02/26/17 Ferrous Gluconate [Iron 27] 1 tablet PO QAM 02/26/17 Ibuprofen [Advil] 200 mg PO Q4H PRN 02/26/17 [place]-3 Fatty Acids [Fish Oil] 1,000 mg PO BEDTIME 02/26/17 Potassium Chloride [Potassium Chloride ER] 20 meq PO DAILY #30 cap 02/28/17 Decision To Admit - Decistion To Admit Decision to Admit Reason: Medical Nature Decision to Admit Date: 03/01/17 Decision to Admit Time: 18:28
--- NOTE | 2017-03-01 20:04 | HP ---
SUPERVISING PHYSICIAN: Zachary Perez MD CHIEF COMPLAINT: Palpitations. HISTORY OF PRESENT ILLNESS: Ms. Conte is a 71 year-old female patient who presented to the Emergency Room today due to the fact that she was feeling heart palpitations. Her home health nurse noted that her heart rate in between 140 and 150. She does have a longstanding history of atrial fibrillation and has had rate control in the past. In fact, she had just been discharged yesterday on 02/28/17 after being treated for a severe hypokalemia. She noted that she went home and feels like she took all of her medication which she normally takes a beta aurora for rate control when she noted she was having a significant increase in her heart rate overnight. She denies any chest pain or shortness of breath but notes she can feel the palpitations when she starts ambulating. She does have a history of known breast cancer that is metastasized to the bone, liver and lungs. Initial vital signs in the Emergency Department showed she had a heart rate of 140 and was afebrile with a temperature of 99.6, blood pressure initially was 101/69, respirations 20, saturation 96% on room air. Given that she hash ad rate control with beta aurora and was having mild hypotension, Dr. Perez, Emergency Room physician gave her a single dose of metoprolol 12.5 along with a loaded dose of digoxin 0.25 mg which did result in a decrease in her heart rate into the 120s. Other laboratory studies showed that she was with a normal potassium at 4.5, calcium 9.7, magnesium 1.8, all other electrolytes except for a mild hyponatremia was within normal limits with a sodium of 134. Cardiac enzymes initially showed troponin less than 0.02 and BNP which was 212 which is actually improved from previous admission of 266. Her EKG showed atrial fibrillation with rapid ventricular response and given her history of atrial fibrillation as well as she is chronically on anticoagulation with Xarelto, Dr. Perez, Emergency Room physician, requested the patient be admitted for close cardiac telemetry and further adjustment in medications with additional digoxin to help control her rate given that she was hypotensive making it difficult to utilize calcium channel blockers for additional rate control. The patient was admitted to the however for further treatment and evaluation and was stable at the time of admission. PAST MEDICAL HISTORY: 1. Chronic atrial fibrillation on rate control with beta blockade and chronic Xarelto. 2. Malignant neoplasm of the left breast with metastasis noted to lungs, liver and bones. 3. 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 PAST SURGICAL HISTORY: 1. Left mastectomy performed in 2001. 2. Left knee surgery. 3. Thoracentesis. CURRENT MEDICATIONS: Please see updated list of verified home medications in electronic medical records. Medications listed on admission to the Emergency Department were: 1. Tramadol 15 mg p.o. every 6 hours p.r.n.. 2. Xarelto 20 mg daily. 3. Potassium chloride 20 mEq daily. 4. Fish oil 1000 mg daily at bedtime. 5. Metoprolol tartrate 12.5 mg daily. 6. Imodium 1 mg as needed. 7. Atrovent 17 mcg inhaled 3 times a day if needed. 8. Advil and ibuprofen as needed. 9. [place] 5/325, one tablet every 6 hours p.r.n. 10. Mucinex 600 mg every 12 hours as needed. 11. Lasix 40 mg daily. 12. Ferrous sulfate 1 tablet daily. 13. Exemestane 25 mg daily. 14. Afinitor 10 mg daily. 15. Nexium 20 mg daily at bedtime. 16. Lexapro 10 mg daily. 17. Marinol 2.5 mg twice a day 18. Vitamin B12 injections weekly 1000 mcg. 19. Calcium supplementation 1 tablet qAM. 20. Vitamin C 1000 mg daily. 21. Albuterol inhalers t.i.d. as needed. ALLERGIES: NO KNOWN DRUG ALLERGIES. FAMILY HISTORY: Positive for cancer, cerebrovascular accidents and coronary artery diseases. SOCIAL HISTORY: The patient lives in [place]. She is disabled. She is , ivies along. She has 5 children and has home health. She is a nonsmoker and does not drink alcohol. REVIEW OF SYSTEMS: GENERAL: No significant fever or chills noted, but does note she has had some weight loss in the recent months. . HEENT: She has lost the majority of her hair secondary to chemotherapy and radiation therapy. No hearing changes or vision disturbances. . LUNGS: She has some occasional shortness of breath on exertion but denies any cough. HEART: History of atrial fibrillation with palpitations as noted in history of present illness but no chest pains. GASTROINTESTINAL: Decreased appetite, no November, blood in the stools or other bowel habit changes. GENITOURINARY: Denies dysuria, hematuria or other urinary symptoms. EXTREMITIES: She does note she is weak and has chronic swelling to the upper extremity on the left after mastectomy in 2002 but no changes. . NEUROLOGIC: No reported focal neurological deficits but she is noting that she is weaker than normal I the recent weeks. PHYSICAL EXAMINATION: GENERAL: The patient on admission to the medical/surgical floor appears to be comfortable and in no distress. She is well-nourished, well hydrated and alert. . HEENT: Tympanic membranes are clear bilaterally. Oropharynx noted poor dentition but no lesions. Mucous membranes are pink, moist.. NECK: Supple. Non-tender with full range of motion. No jugular venous distention. CHEST: Lungs clear with no obvious rhonchi, rales, or wheezes, just diminished towards the bases. CARDIOVASCULAR: Slightly irregular rate and rhythm, tachycardiac with atrial fibrillation with rapid ventricular response noted on telemetry. No appreciable murmur. ABDOMEN: Soft, non-tender with normal bowel sounds. EXTREMITIES: No cyanosis, clubbing, noted. Left upper extremity has a chronic lymphedema with a pressure device in place. NEUROLOGIC: She is alert and oriented x 3. Cranial nerves II through XII are grossly intact. LABORATORY STUDIES: CBC on admission shows 9,400 white count with hemoglobin 9.5, hematocrit 28.9 with microcytic hyperchromic presentation consistent with previous labs in the last week showing to be stable. Platelet count 373,000, differential within normal limits. Chemistries show a mild hyponatremia at 134 , potassium 4.5, BUN 16, creatinine 1.1, calcium 9.7, magnesium 1.8. Liver functions within normal limits. Initial troponin less than 0.02. BNP slightly elevated at 212. Urinalysis showed to be within normal limits. RADIOLOGY: Chest x-ray pending. EKG showed atrial fibrillation with a rapid ventricular response in the 140s. ASSESSMENT: 1. Chronic atrial fibrillation with a rapid ventricular response likely due to missed beta blockers showing good response initially with additional beta aurora and a loading dose of digoxin in the Emergency Department with patient reporting no chest pains and showing to be hemodynamically stable with patient being on anticoagulation therapy with Xarelto. 2. Mild electrolyte imbalance with a hyponatremia secondary to loop diuretics. 3. History of breast cancer with metastasis to the liver, lung and bone. 4. Long history of anemia with a microcytic hypochromic presentation secondary to chronic illness. PLAN: The patient is to be admitted to the medical/surgical floor for close cardiac telemetry monitoring and further loading doses of digoxin and management of her beta block to assist with rate control. We will restart her medications this morning which will include metoprolol tartrate 12.5 mg as well as giving her a second dose of dig 0.125 in 8 hours and closely monitor response. Will closely monitor her I&Os but hold off on any IV fluids at this point and recheck BNP in the morning as well as cardiac panel. Anticipate length of stay to be at least 2 to 3 days until showing to be clinically stable with better control of her heart rate. Will also resume her Xarelto and the DVT prophylaxis. Until discharge, we will continue to monitor closely and treat appropriately and once discharged she will need close clinical followup with Dr. Perez, her primary care physician. #[id number] JOHN
[2017-03-01] MEDS ORDERED: NITROGLYCERIN 0.4 MG 25 EA TAB SL PRN (20:32)
[2017-03-01] MEDS ORDERED: SODIUM CHLORIDE 0.9% (FLUSH) 10 ML SYG IV PRN (20:32)
[2017-03-01] MEDS ORDERED: ACETAMINOPHEN 325 MG TAB PO PRN (20:32)
[2017-03-01] MEDS ORDERED: traMADol HCL 50 MG TAB PO PRN (20:39)
[2017-03-01] MEDS ORDERED: HYDROcodone 5MG/APAP 325MG 1 EA TAB PO PRN (20:39)
[2017-03-01] MEDS ORDERED: IPRATROPIUM BROMIDE 17 MCG INH PRN (20:39)
--- NOTE | 2017-03-01 20:48 | PCM.CORE ---
Physician DVT/VTE - Prophylaxis Currently: Patient already on anticoagulation therapy - xarelto - Nurse DVT Assessment & Total Each Risk Factor Represents 2 Points: Age 60-74, Malignancy (present/past), Centeral Venous Access DVT Assessment Score: 6 - 5 or more Very High Risk Treatments: Early Ambulation *, Sequential Compression Device
[2017-03-01] MEDS: SODIUM CHLORIDE 0.9% (FLUSH) 10 ML SYG IV SCH (22:01)
[2017-03-01] MEDS: IV SET AND CAP CHANGE INJ INJ SCH (22:05)
[2017-03-01] MEDS: DRONABINOL 2.5 MG PO SCH (22:05)
[2017-03-02] MEDS ORDERED: DIGOXIN 0.25 MG TAB PO ONE ×2 (02:00→22:44)
[2017-03-02] MEDS ORDERED: DIGOXIN 0.125 MG TAB ONE ×2 (02:08→23:02)
[2017-03-02] MEDS ORDERED: METOPROLOL TARTRATE 25 MG TAB PO ONE ×2 (07:23→22:52)
[2017-03-02] MEDS ORDERED: DIGOXIN 0.125 MG TAB PO ONE (08:00)
[2017-03-02] MEDS ORDERED: METOPROLOL TARTRATE 25 MG TAB PO SCH ×2 (09:00→17:00)
[2017-03-02] MEDS ORDERED: NON-FORMULARY MEDICATION 1 EA MIS (Rivaroxaban [Xarelto] 20 MG) PO SCH (09:00)
[2017-03-02] MEDS: KCL 20 MEQ/NS 1,000 ML IVS PRN ×2 (09:46→22:18)
[2017-03-02] MEDS: ASCORBIC ACID 500 MG TAB PO SCH (09:47)
[2017-03-02] MEDS: POTASSIUM CHLORIDE 20 MEQ TAB PO SCH (09:47)
[2017-03-02] MEDS: CALCIUM CARBONATE-VITAMIN D 500 MG TAB PO SCH (09:47)
[2017-03-02] MEDS: FUROSEMIDE 40 MG TAB PO SCH (09:47)
[2017-03-02] MEDS: SODIUM CHLORIDE 0.9% (FLUSH) 10 ML SYG IV SCH ×2 (09:47→21:50)
[2017-03-02] MEDS: ESCITALOPRAM 10 MG TAB PO SCH (09:47)
[2017-03-02] MEDS: DRONABINOL 2.5 MG PO SCH ×2 (10:18→21:49)
[2017-03-02] MEDS: EVEROLIMUS 10 MG PO SCH (10:18)
[2017-03-02] MEDS: EXEMESTANE 25 MG PO SCH (10:18)
[2017-03-02] MEDS: RIVAROXABAN 10 MG TAB PO SCH (11:55)
--- NOTE | 2017-03-02 16:13 | PN ---
DATE: 03/02/17 SUPERVISING PHYSICIAN: Zachary Perez M.D. SUBJECTIVE: The patient is doing well. She still has some palpitations with her heart rate still in the 120s, but has not had any chest pain. She remains hemodynamically stable/. OBJECTIVE: VITAL SIGNS: Pulse 132, blood pressure 108/61, respirations 18, satting 94% on room air. Weight 45.2 kg. I's and O's show a negative balance of 135 with 360 in, 495 out. LUNGS: Clear to auscultation. HEART: Regular rate and rhythm with rapid ventricular response as noted on telemetry. ABDOMEN : Soft, non-tender. Positive bowel sounds. EXTREMITIES: Left arm remains with lymphedema and compression garment in plast. No other notable edema, cyanosis or clubbing. NEUROLOGIC: She is alert and oriented times three. LABORATORY: Chemistries show continued hyponatremia with sodium 132, potassium 4.1, BUN 16, creatinine 1.14, calcium 9.4, troponin was less than 0.02. RADIOLOGY: No additional radiographic studies. EKG showed continued atrial fibrillation with rapid ventricular response. ASSESSMENT: 1. Chronic atrial fibrillation with rapid ventricular response felt to be due to a missed beta aurora to include Metoprolol and previous medication regimen showing good response with additional beta blockade with Metoprolol in the Emergency Department with a loading dose of Digoxin with the patient reporting no chest pain, showing to be hemodynamically stable and on coagulation therapy chronically with Xarelto. 2. Mild electrolyte imbalance with a persistent hyponatremia secondary to loop diuretics. 3. History of breast cancer with metastasis to the liver, lungs and bone. 4. Long history of anemia with microcytic hypochromic presentation secondary to chronic illness. PLAN: Will continue with plan of care with finishing up loading her Digoxin today with a third dose of 0.125 since the E. R. which will be a total of 3 doses as well as increase her Metoprolol to 25 mg tartrate at 25 in the morning and 12.5 at night, and close monitoring of her cardiac telemetry. The patient remains hemodynamically stable. Will continue to monitor closely and work to get her rate control. She has been restarted on Xarelto until she is clinically stable. Will continue to monitor and treat appropriately. #[id number] [facility]
[2017-03-02] MEDS ORDERED: METOPROLOL TARTRATE 25 MG TAB ONE (17:17)
[2017-03-02] MEDS ORDERED: ESOMEPRAZOLE MAGNESIUM 20 MG PO SCH (21:00)
[2017-03-03] MEDS: METOPROLOL TARTRATE 25 MG TAB PO SCH ×2 (07:49→17:01)
[2017-03-03] MEDS: POTASSIUM CHLORIDE 20 MEQ TAB PO SCH (07:49)
[2017-03-03] MEDS: FUROSEMIDE 40 MG TAB PO SCH (09:00)
[2017-03-03] MEDS: DRONABINOL 2.5 MG PO SCH ×2 (09:00→20:48)
[2017-03-03] MEDS: EXEMESTANE 25 MG PO SCH (09:00)
[2017-03-03] MEDS: ESCITALOPRAM 10 MG TAB PO SCH (09:00)
[2017-03-03] MEDS: EVEROLIMUS 10 MG PO SCH (09:00)
[2017-03-03] MEDS: CALCIUM CARBONATE-VITAMIN D 500 MG TAB PO SCH (09:01)
[2017-03-03] MEDS: ASCORBIC ACID 500 MG TAB PO SCH (09:01)
[2017-03-03] MEDS: RIVAROXABAN 10 MG TAB PO SCH (09:03)
[2017-03-03] MEDS: SODIUM CHLORIDE 0.9% (FLUSH) 10 ML SYG IV SCH ×2 (09:04→20:49)
[2017-03-03] MEDS: KCL 20 MEQ/NS 1,000 ML IVS PRN ×3 (09:42→22:08)
--- NOTE | 2017-03-03 15:10 | PN ---
DATE: 03/03/17 SUPERVISING PHYSICIAN: Zachary Perez M.D. SUBJECTIVE: The patient is resting in bed. Her heart rate did convert yesterday but once again she went back to a rapid ventricular response through the night. She is not having any chest pains but does have some shortness of breath with any exertional effort. She remains hemodynamically stable. OBJECTIVE: VITAL SIGNS: Temperature 97.8, pulse 112, blood pressure 107/64, respirations 18, satting 95% on room air. I's and O's show a positive balance of 680 with 1990 in, 1310 out. Weight is 45.5 kg. She has had a bowel movement. CHEST: Lungs are clear to auscultation bilaterally with no rhonchi, wheezing or rales. HEART: Regular rate and rhythm but tachycardic. ABDOMEN: Soft, non-tender. Positive bowel sounds. EXTREMITIES: No clubbing, cyanosis or edema. NEUROLOGIC: She was alert and oriented times three. LABORATORY: Chemistries show a persistent hyponatremia with sodium 132, potassium 3.8, BUN 16, creatinine 1.1. Troponin was less than 0.02. Digoxin level was 2.7. ASSESSMENT: 1. Chronic atrial fibrillation with persistent rapid ventricular response requiring adjustment of medication regimen with beta aurora including Metoprolol in addition of adding Digoxin with the patient showing continuation of rapid ventricular response intermittently requiring close monitoring with the patient continuing to be hemodynamically stable. 2. Mild electrolyte imbalance with persistent hyponatremia, chronic secondary to loop diuretics. 3. History of breast cancer with metastasis to the liver, lungs and bone. 4. Long history of anemia with microcytic hypochromic presentation secondary to chronic illness. PLAN: Will continue with telemetry. She did convert with an additional dose of Metoprolol, therefore I have increased her Metoprolol to 25 mg b.i.d. as well as gave her an additional dose of Digoxin last night at 0.125, however this morning her Digoxin level was just above the high end of normal, therefore will hold the Digoxin today and plan to repeat in the morning with anticipating initiating at a low dose according to current levels. Will anticipate hopefully discharging tomorrow once she shows a stable rhythm. She remains on IV fluids to help correct her underlying hyponatremia. Once she shows to be clinically stable in regards to her heart rate with a stable medication regimen to include a beta aurora and Digoxin and showing hemodynamically stable, certainly will discharge the patient to continue with outpatient therapy and close followup with Dr. Perez, her primary care provider. Until then, will continue to monitor and treat appropriately. #[id number] [facility]
[2017-03-03] MEDS ORDERED: PANTOPRAZOLE SODIUM TAB 40 MG PO ONE (19:43)
[2017-03-03] MEDS: PANTOPRAZOLE SODIUM TAB 40 MG PO SCH (20:39)
[2017-03-04] MEDS: METOPROLOL TARTRATE 25 MG TAB PO SCH ×2 (07:59→17:48)
[2017-03-04] MEDS: POTASSIUM CHLORIDE 20 MEQ TAB PO SCH (07:59)
[2017-03-04] MEDS: CALCIUM CARBONATE-VITAMIN D 500 MG TAB PO SCH (08:49)
[2017-03-04] MEDS: ASCORBIC ACID 500 MG TAB PO SCH (08:49)
[2017-03-04] MEDS: RIVAROXABAN 10 MG TAB PO SCH (08:49)
[2017-03-04] MEDS: SODIUM CHLORIDE 0.9% (FLUSH) 10 ML SYG IV SCH ×2 (08:49→20:45)
[2017-03-04] MEDS: ESCITALOPRAM 10 MG TAB PO SCH (08:49)
[2017-03-04] MEDS: FUROSEMIDE 40 MG TAB PO SCH (08:49)
[2017-03-04] MEDS: EVEROLIMUS 10 MG PO SCH (08:50)
[2017-03-04] MEDS: DRONABINOL 2.5 MG PO SCH ×2 (08:50→20:45)
[2017-03-04] MEDS: EXEMESTANE 25 MG PO SCH (08:51)
[2017-03-04] MEDS ORDERED: DIGOXIN 0.125 MG TAB PO SCH (12:00)
--- NOTE | 2017-03-04 19:00 | PN ---
DATE: 03/04/17 SUPERVISING PHYSICIAN: Zachary Perez M.D. SUBJECTIVE: The patient is doing well. She was actually going to be discharged today, however she lives alone. She has no way to get home and there are no resources to get her home today. She has had no nausea or vomiting. She has had no chest pains and her heart rate has been well controlled since she has been here. OBJECTIVE: VITAL SIGNS: Temperature 98.6, pulse 90, blood pressure 109/71, respirations 18, satting 94% on room air. I's and O's have been well balanced with a positive balance of 687 with 2737 in, 2050 out. Weight is 46.9 kg. CHEST: Clear to auscultation. HEART: Slightly irregular rate and rhythm with controlled ventricular rate. ABDOMEN: Soft, non-tender. Positive bowel sounds. EXTREMITIES: No clubbing, cyanosis or edema. NEUROLOGIC: She is alert and oriented times three. The patient was having multiple bouts of going to the bathroom for urinating and only urinating very small amounts, therefore a catheter was placed to further assess for urinary retention and to ensure that she did have an underlying urinary tract infection. LABORATORY: Continues to show a persistent hyponatremia but stable at 132, potassium is normal at 3.8, BUN 10, creatinine 0.94, calcium 8.7. Digoxin level was 1.1. RADIOLOGY: There were no radiographic studies completed today. MICROBIOLOGY: There are no microbiology specimens for review. ASSESSMENT: 1. Chronic atrial fibrillation with rapid ventricular response requiring addition and adjustment of medication regimen that included increasing Metoprolol tartrate to 25 mg b.i.d. as well as the addition of Digoxin requiring a loading dose and close monitoring to allow the patient to become more stable showing good response with a controlled ventricular rate and hemodynamically stable. 2. Mild electrolyte imbalance with chronic hyponatremia secondary to chronic loop diuretics. 3. History of breast cancer with metastasis to the liver, lungs and bone. 4. Long history of anemia with microcytic hypochromic presentation secondary to chronic illness. 5. Urinary retention with no signs of infection requiring followup on discharge. PLAN: Her Rueda has been removed. She will be taken off telemetry as she is showing to be stable. Discharge planning is to discharge her home as soon as she has a ride on new medication regimen to include Metoprolol tartrate 25 mg b.i.d. and Digoxin 0.125 mg daily. Her Digoxin level this morning was therapeutic. The patient is going to need close clinical followup with Dr. Perez at discharge. Until discharge, will continue to monitor the patient and treat appropriately. The patient is actually discharged once she can secure a means to go home as she is home bound and utilizes home health with [facility]. #[id number] [facility]TD[facility]
[2017-03-04] MEDS: PANTOPRAZOLE SODIUM TAB 40 MG PO SCH (20:45)
[2017-03-04] MEDS: IV SET AND CAP CHANGE INJ INJ SCH (20:45)
[2017-03-05] MEDS: POTASSIUM CHLORIDE 20 MEQ TAB PO SCH (07:53)
[2017-03-05] MEDS: METOPROLOL TARTRATE 25 MG TAB PO SCH (07:53)
[2017-03-05] MEDS: DRONABINOL 2.5 MG PO SCH (08:03)
[2017-03-05] MEDS: EVEROLIMUS 10 MG PO SCH (08:03)
[2017-03-05] MEDS: EXEMESTANE 25 MG PO SCH (08:03)
[2017-03-05] MEDS: ASCORBIC ACID 500 MG TAB PO SCH (08:17)
[2017-03-05] MEDS: FUROSEMIDE 40 MG TAB PO SCH (08:17)
[2017-03-05] MEDS: RIVAROXABAN 10 MG TAB PO SCH (08:17)
[2017-03-05] MEDS: ESCITALOPRAM 10 MG TAB PO SCH (08:17)
[2017-03-05] MEDS: CALCIUM CARBONATE-VITAMIN D 500 MG TAB PO SCH (08:17)
[2017-03-05] MEDS: SODIUM CHLORIDE 0.9% (FLUSH) 10 ML SYG IV SCH ×2 (08:18→08:35)
[2017-03-05 09:41] VITALS: BP 111/68; TEMP 98.2; O2SAT 95
--- NOTE | 2017-03-15 11:41 | DS ---
SUPERVISING PHYSICIAN: Estrada Mark MD DISCHARGE DIAGNOSIS: 1. Chronic atrial fibrillation with rapid ventricular response on admission requiring adjustment of medication regimen that included increasing metoprolol tartrate to 25 mg b.i.d. as well as the addition of digoxin in order to stabilize rhythm with the patient showing a stable ventricular rate prior to discharge and hemodynamically stable. 2. Mild electrolyte imbalance with chronic hyponatremia secondary to chronic loop diuretics. 3. History of breast cancer with metastasis to the liver, lungs and bone. 4. Long history of anemia with microcytic/hypochromic secondary to chronic illness. 5. Urinary retention with no signs of infection, requiring close followup on discharge. REASON FOR HOSPITALIZATION: Ms. Conte is a 71-year-old female patient who presented to the Emergency Room on 03/01/17 due to the fact that she was feeling heart palpitations. Her home health nurse noted that her heart rate had been between 140 and 150. She does have a longstanding history of atrial fibrillation and has had rate control in the past. In fact, she had just been discharged on 02/28/17 after being treated for a severe hypokalemia. She noted that she went home and felt okay. She took all of her medication which she normally takes a beta aurora for rate control and noted she was having a significant increase in her heart rate overnight. She denied any chest pain or shortness of breath, but noted she could feel the palpitations when she started to ambulate. She does have a history of known breast cancer that is metastasized to the bone, liver and lungs. Initial vital signs in the Emergency Department showed she had a heart rate of 140 and was afebrile with a temperature of 99.6, blood pressure 101/69, respirations 20, saturation 96% on room air. Dr. Perez, Emergency Room physician, gave her a single dose of metoprolol 12.5 mg along with a loading dose of digoxin 0.25 mg resulting in a decrease in her heart rate into the 120s. Laboratory studies showed a normal potassium of 4.5, calcium 9.7, magnesium 1.8, all other electrolytes except for a hyponatremia was within normal limits with a sodium of 134. Cardiac enzymes initially showed troponin less than 0.02 and BNP which was 212 which is actually improved from previous admission of 266. Her EKG showed atrial fibrillation with rapid ventricular response and given her history of atrial fibrillation as well as chronic anticoagulation with Xarelto, Dr. Perez, Emergency Room physician, requested the patient be admitted for close cardiac telemetry and further adjustment in medications with additional digoxin to help control her rate given that she was hypotensive making it difficult to utilize calcium channel blockers for additional rate control. The patient was admitted in stable condition for further treatment and evaluation. LABORATORY: CBC on admission showed normal white count at 9,400, hemoglobin 9.5 , hematocrit 28.9, platelet count 373,000, differential within normal limits. Chemistries initially on admission showed sodium 134, potassium 4.5, BUN 16, creatinine 1.1. Liver functions all within normal limits. At discharge, electrolytes showed sodium 132, potassium normal at 3.8, creatinine and BUN remained within normal limits with her troponins times 2 less than 0.02. BNP on admission was 212. Urinalysis initially on admission was within normal limits. She had two other additional urinalyses due to the fact that she was having some urinary retention and had a catheter placed. All three of those urinalyses were within normal limits with no signs of an infectious process. She had a digoxin level after loading her dig that was 2.7. After readjustment of her dig and prior to discharge, digoxin was in therapeutic range at 1.1. RADIOLOGY: No radiographic studies were completed. EKG in the Emergency Room showed she was in atrial fibrillation with a rate of 126. HOSPITAL COURSE: Ms. Conte was admitted as noted on 03/01/17 from the Emergency Room due to atrial fibrillation with a rapid ventricular response. She was given a beta aurora in the Emergency Room because it was felt she had probably missed her dose previously and was also started on digoxin. She was continued no digoxin through her loading dose and had her beta aurora increased to 25 mg b.i.d. instead of 12.5 mg. She was hemodynamically stable and had good rate control. She did have some issues with urinary retention and urinary catheter was placed and showed was not completely emptying her bladder, but there were no signs of infection. On the date of discharge, she was hemodynamically stable with a temperature of 92, pulse 109, blood pressure 111/ 68, respirations 12, saturation 95% on room air. PLAN: Ms. Conte was discharged on 03/05/17 with instructions to followup with Dr. Perez in the clinic as well as with [facility]. She was to take her medications as prescribed which included metoprolol 25 mg. She was told to take a whole tablet, which she had previously taken a half tablet, twice daily. Her new medications on discharge included digoxin for rate control. She was to take one daily and instructed to never double up on her dose if she missed a dose. She was told to return to the hospital should she have any concerning symptoms. ACTIVITY AT DISCHARGE: Increase as tolerated. DIET AT DISCHARGE: As tolerated. DISCHARGE MEDICATIONS: 1. Digoxin 0.125 mg daily, #30. 2. Metoprolol 25 mg twice daily, #30. All other medications were resumed as previously as mentioned above. CONDITION ON DISCHARGE: Stable and improved. [facility][id number] [facility]
== END 2017-03-05 10:25 | disposition home health service (06) | DRG 309 ==
LOC: ER 16:00 → OBSVTOIN 20:03 → MS 20:03
PROVIDERS: ADMIT Nurse Practitioner Family; ATTEND Nurse Practitioner Family
DX: I48.2 Chronic atrial fibrillation (principal); E87.1 Hypo-osmolality and hyponatremia; C78.7 Secondary malignant neoplasm of liver and intrahepatic bile duct; C79.51 Secondary malignant neoplasm of bone; C78.00 Secondary malignant neoplasm of unspecified lung; I50.9 Heart failure, unspecified; I97.2 Postmastectomy lymphedema syndrome; I95.9 Hypotension, unspecified; D50.9 Iron deficiency anemia, unspecified; Z60.2 Problems related to living alone; R32 Unspecified urinary incontinence; Z85.3 Personal history of malignant neoplasm of breast; Z79.01 Long term (current) use of anticoagulants; Z79.1 Long term (current) use of non-steroidal anti-inflammatories (NSAID); Z79.899 Other long term (current) drug therapy

== ENCOUNTER → 2017-03-09 | Outpatient (CLI) | payer MEDICARE, MEDICAID | END | disposition home or self-care (01) | LOC: BFHH 14:24 | PROVIDERS: ATTEND Family Medicine | DX: I48.91 Unspecified atrial fibrillation (principal) ==

== ENCOUNTER → 2017-04-12 | Outpatient (CLI) | payer MEDICARE, OTHER | END | disposition home or self-care (01) | LOC: GMAM 14:22 | PROVIDERS: ATTEND Family Medicine | DX: I48.2 Chronic atrial fibrillation (principal) ==